=== PATIENT | male | born 1960 | race Caucasian/White ===

== ENCOUNTER 2019-04-02 12:31 | Emergency (ER) | payer MEDICARE ==
--- NOTE | 2019-04-02 12:57 | ED ---
GI/ HPI - HPI Summary HPI Summary: This patient is a 58 year old M presenting to [facility] with a chief complaint of constipation since 03/30/19. Pts last BM was 03/30/19. Pt reports he has always been intermittently constipated; however he reports this time is different from normal. He feels an intense sensation that he will have a BM, but nothing occurs , just abdominal pain. Pt reports that prior to arrival he experienced a syncopal episode. Pt took a laxative yesterday, which provided short-term relief as pressure at abdomen started dissipating, however pt did not have a BM. Pt then took a suppository but that also did not work. In triage severity reported as 12/14. - History of Current Complaint Chief Complaint: EDConstipation Time Seen by Provider: 04/02/19 12:40 Stated Complaint: CHEST PAIN/CONSTIPATION PER EMS Hx Obtained From: Patient Onset/Duration: Started Days Ago - began 03/31/19, Still Present Severity: Mild Current Severity: Mild Pain Intensity: 3 Pain Characteristics: Pressure Associated Signs and Symptoms: Positive: Syncope, Constipation, Abdominal Pain Aggravating Factor(s): Nothing Alleviating Factor(s): Nothing - Allergy/Home Medications Allergies/Adverse Reactions: Allergies Allergy/AdvReac Type Severity Reaction Status Date / Time MS Oxycodone [Oxycodone] Allergy Mild Itching Verified 04/02/19 13:10 MS Omeprazole [Omeprazole] AdvReac Intermediate Altered Verified 04/02/19 13:10 Mental Status PMH/Surg Hx/FS Hx/Imm Hx Endocrine/Hematology History: Reports: Hx Diabetes, Other Endocrine/ Hematological Disorders - HEMOCHROMOTOSIS & HEP C, SPLENECTOMY. Denies: Hx Systemic Lupus Erythematosus, Hx Sickle Cell Disease, Hx Thyroid Disease, Hx Anemia Cardiovascular History: Reports: Hx Angina, Hx Hypercholesterolemia - DYSLIPIDEMIA, Hx Hypertension - ON MEDS, Other Cardiovascular Problems/ Disorders - NEGATIVE CARDIAC CATH 2009 @ [facility] Denies: Hx Congestive Heart Failure, Hx Coronary Artery Disease, Hx Myocardial Infarction, Hx Pacemaker/ICD, Hx Valvular Heart Disease Respiratory History: Reports: Hx Chronic Obstructive Pulmonary Disease (COPD), Other Respiratory Problems/Disorders - CURRENT SMOKER Denies: Hx Asthma GI History: Reports: Hx Gastroesophageal Reflux Disease - ON OMAPRAZOLE, Other GI Disorders - chronic hepatitis, liver lesions dx a week ago Denies: Hx Jaundice, Hx Ulcer History: Reports: Hx Kidney Stones Denies: Hx Dialysis, Hx Renal Disease Musculoskeletal History: Reports: Other Musculoskeletal History - HX FX Denies: Hx Rheumatoid Arthritis Sensory History: Reports: Hx Cataracts - cataract surgery hx, Hx Contacts or Glasses Denies: Hx Hearing Aid Opthamlomology History: Reports: Hx Cataracts - cataract surgery hx, Hx Contacts or Glasses Neurological History: Denies: Other Neuro Impairments/Disorders Psychiatric History: Denies: Hx Panic Disorder - Cancer History Cancer Type, Location and Year: 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 CATARACTS BILATERAL EYES. SURGICAL BIOPSY Hx Anesthesia Reactions: No Infectious Disease History: No Infectious Disease History: Reports: Hx Hepatitis - hep c Denies: Hx Clostridium Difficile, Hx Human Immunodeficiency Virus (HIV), Hx of Known/Suspected MRSA, Hx Shingles, Hx Tuberculosis, Hx Known/Suspected VRE, Hx Known/Suspected VRSA, History Other Infectious Disease, Traveled Outside the [place] in Last 30 Days - Family History Known Family History: Positive: Other - Breast CA - sister - Social History Alcohol Use: None Substance Use Type: Reports: None Smoking Status (MU): Light Every Day Tobacco Smoker Type: Cigarettes Amount Used/How Often: 1/2 PPD Have You Smoked in the Last Year: Yes Review of Systems Positive: Abdominal Pain, Other - Positive: Constipation Positive: Syncope All Other Systems Reviewed And Are Negative: Yes Physical Exam - Summary Physical Exam Summary: Appearance: The patient is well-nourished in no acute distress and in no acute pain. Skin: The skin is warm and dry and skin color reflects adequate perfusion. HEENT: The head is normocephalic and atraumatic. The pupils are equal and reactive. The conjunctivae are clear and without drainage. Nares are patent and without drainage. Mouth reveals moist mucous membranes and the throat is without erythema and exudate. The external ears are intact. The ear canals are patent and without drainage. The tympanic membranes are intact. Neck: The neck is supple with full range of motion and non-tender. There are no carotid bruits. There is no neck vein distemension. Respiratory: Chest is non-tender. Lungs are clear to auscultation and breath sounds are symmetrical and equal. Cardiovascular: Heart is tachycardic. There is no murmur or rub auscultated. There is no peripheral edema and pulses are symmetrical and equal. Abdomen: The abdomen is soft and mildly tender in low abdomen. There are normal bowel sounds heard in all four quadrants and there is no organomegaly palpated. Gastrointestinal: Patient had soft stool Musculoskeletal: There is no back tenderness noted. Extremities are non-tender with full range of motion. There is good capillary refill. There is no peripheral edema or calf tenderness elicited. Neurological: Patient is alert and oriented to person, place and time. The patient has symmetrical motor strength in all four extremities. Cranial nerves are grossly intact. Deep tendon reflexes are symmetrical and equal in all four extremities. Psychiatric: The patient has an appropriate affect and does not exhibit any anxiety or depression. Triage Information Reviewed: Yes Vital Signs On Initial Exam: Initial Vitals Temp Pulse Resp BP Pulse Ox 98.6 F 104 18 154/81 100 04/02/19 12:38 04/02/19 12:38 04/02/19 12:38 04/02/19 12:38 04/02/19 12:38 Vital Signs Reviewed: Yes Diagnostics - Vital Signs Vital Signs Temp Pulse Resp BP Pulse Ox 04/02/19 12:38 98.6 F 104 18 154/81 100 - Laboratory Result Diagrams: 04/02/19 13:39 04/02/19 13:39 Lab Statement: Any lab studies that have been ordered have been reviewed, and results considered in the medical decision making process. - Radiology Abd X-Ray Radiology Interpretation Completed By: Radiologist Summary of Radiographic Findings: Abd X-Ray reveals, per radiologist, IMPRESSION : #. Only a small amount of stool is visualized in the colon primarily at the transverse. colon. Negative for rectal distention with stool. Negative for bowel obstruction. ED physician has reviewed this radiology report. - CT Abd/Pel CT CT Interpretation Completed By: Radiologist Summary of CT Findings: Abd/Pel CT reveals per radiologist,. IMPRESSION: NO HYDRONEPHROSIS OR NEPHROLITHIASIS. ATHEROSCLEROSIS. NO ACUTE NONCONTRAST CT PATHOLOGY OF THE VISUALIZED ABDOMEN OR PELVIS. ED physician has reviewed this radiology report. - EKG 1237 Cardiac Rate: Tachycardia - Rate 107 bpm EKG Rhythm: Sinus Tachycardia Summary of EKG Findings: EKG reveals sinus tachycardia at 107 bpm Re-Evaluation - Re-Evaluation First Eval Re-Evaluation Time: 15:52 Comment: Results discussed, will consult oncologist GIGU Course/Dx - Course Course Of Treatment: Mr. Leach has been feeling constipated for a couple of days. He has been straining to move his bowels and feeling as though he needs to but has been unable. This sensation comes in waves and is quite painful today. He was attempting move his bowels today when he lost consciousness in the bathroom. He states he feels fine on arrival here except he continues to have the waves of pain. He was nontoxic in appearance with stable vitals and his abdomen was mildly tender suprapubic. There was some soft stool in the vault. KUB was unimpressive in terms of constipation as read by radiology and labs were unremarkable therefore a CT scan was ordered. He did move his bowels several times here in the ED and felt completely improved. CT scan was unremarkable. I recommended follow-up with Dr. Nguyen. It sounds like a classic vasovagal syncope. He was kept on the monitor here with no abnormalities. - Diagnoses Provider Diagnoses: Syncope, vasovagal, Constipation - Physician Notifications Discussed Care Of Patient With: Rosa Nguyen Time Discussed With Above Provider: 15:56 Instructed by Provider To: Other - Patient's case discussed with Dr. Nguyen, Dr. Nguyen states that the patient can be discharged to home Discharge - Sign-Out/Discharge Documenting (check all that apply): Patient Departure - Discharge Patient Received Moderate/Deep Sedation with Procedure: No - Discharge Plan Condition: Stable Disposition: HOME Patient Education Materials: Constipation (ED), Syncope (ED) Referrals: Giacomo Mckee MD [Primary Care Provider] - 3 Days Additional Instructions: Follow up with primary care provider within 2-3 days. RETURN TO THE EMERGENCY DEPARTMENT FOR CHANGING OR WORSENING SYMPTOMS. - Billing Disposition and Condition Condition: STABLE Disposition: Home - Attestation Statements Document Initiated by Scribe: Yes Documenting Scribe: MATI SAUCEDO Provider For Whom Renee is Documenting (Include Credential): TYREE BISWAS MD Scribe Attestation: ALEXEI Ponce GAYATRI PRAKASH, scribed for TYREE BISWAS MD on 04/02/19 at 2112. Scribe Documentation Reviewed: Yes Provider Attestation: The documentation as recorded by the ALEXEI stroud GAYATRI NORM accurately reflects the service I personally performed and the decisions made by me, TYREE BISWAS MD Status of Renee Document: Viewed
[2019-04-02 14:03] LABS: Albumin 3.8 g/dL (3.2-5.2); BUN/Creatinine Ratio 16.9 (8-20); Calcium 9.1 mg/dL (8.6-10.3); EGFR African American 136.9 (>60); EGFR Non-African American 113.2 (>60); Globulin 3.9 g/dL (2-4); Magnesium 2.2 mg/dL (1.9-2.7); Potassium 4.4 mmol/L (3.5-5.0); Total Bilirubin 1.3 mg/dL (0.2-1.0); Total Protein 7.7 g/dL (6.4-8.9)
[2019-04-02 14:04] LABS: Troponin I 0.01 ng/mL (<0.04)
[2019-04-02 14:08] LABS: ABS Basophils 0.1 10^3/ul (0-0.2); ABS Neutrophils 4.6 10^3/ul (1.5-7.7); Eosinophil % 0.3 %; Hematocrit 47 % (42-52); Hemoglobin 16.1 g/dL (14.0-18.0); Lymphocyte % 25.7 %; Mean Corpuscular HGB Conc 34 g/dL (31-36); Mean Corpuscular Hemoglobin 33 pg (27-31); Mean Corpuscular Volume 95 fL (80-94); Mean Platelet Volume 8.4 fL (7.4-10.4); Nucleated Red Blood Cells % 0.1; Platelet Count 216 10^3/uL (150-450); Red Blood Count 4.95 10^6 /uL (4.18-5.48); Red Cell Distribution Width 13 % (10-15); White Blood Count 7.7 10^3/uL (3.5-10.8)
[2019-04-02 14:30] LABS: INR 1.12 (0.82-1.09)
[2019-04-02 14:39] LABS: TSH (Thyroid Stimulating Horm) 1.54 mcIU/mL (0.34-5.60)
[2019-04-02] MEDS ORDERED: NS 0.9% 1000 ML** 1,000 ML IV ONE (15:58)
[2019-04-02 18:18] VITALS: BP 163/88
== END 2019-04-02 18:17 | disposition home or self-care (01) ==
LOC: ED 12:31
DX: K59.00 Constipation, unspecified (principal); R55 Syncope and collapse; I70.90 Unspecified atherosclerosis; E11.9 Type 2 diabetes mellitus without complications; I10 Essential (primary) hypertension; F17.210 Nicotine dependence, cigarettes, uncomplicated; J44.9 Chronic obstructive pulmonary disease, unspecified; Z88.5 Allergy status to narcotic agent; Z88.8 Allergy status to other drugs, medicaments and biological substances
CPT/HCPCS: 36415; 74018; 74176; 80053; 83605; 83735; 84443; 84484; 85025; 85610; 93005; 96360; 99284

== ENCOUNTER 2019-07-20 02:58 | Emergency (ER) | payer MEDICARE ==
--- OUTSIDE RECORDS SUMMARY | 2019-07-20 03:08 | XMS REPORT | Continuity of Care Document ---
:1960 External Reference #:[id number] Author Name Sudhir Rios MD (transmitted by agent of provider Alexandrea Reeves) Address [address] [place] [address] Care Team Providers Name Role Phone Giacomo Mckee MD - Endocrinology, Care Team Information Block Sealer Diabetes & Metabolism Problems Active Problems Provider Date Displacement of lumbar intervertebral disc Sudhir Rios MD Onset: without myelopathy Lumbosacral spondylosis without myelopathy Juan Jose Fountain M.D. Onset: Social History Type Date Description Comments Sex Unknown Cigarette Use Pack Years - 40 ETOH Use Denies alcohol use Tobacco Use Start: Unknown Patient is a current smoker, smokes every day Recreational Drug Use Denies Drug Use Tobacco Use Start: Unknown Light tobacco smoker (10 or fewer cigarettes/day) Smoking Status Reviewed: 06/26/19 Light tobacco smoker (10 or fewer cigarettes/day) Exercise Type/Frequency Walks daily Allergies, Adverse Reactions, Alerts Active Allergies Reaction Severity Comments Date Oxycodone Urticaria per patient 11/04/2014 Inactive Allergies NKDA 11/04/2014 Medications Active Medications SIG Qnty Indications Ordering Provider Date Humalog 8 units 3x daily Unknown Solution or as directed Cartridge Lantus Solostar 40 units (of 100 Unknown units/ml) at hs 100Unit/ML Solution Pen-Inject Metoprolol Tartrate 1 by mouth twice a Unknown day 50mg Tablets Amlodipine Besylate 1 by mouth every Unknown day 10mg Tablets Gabapentin 1 by mouth three Unknown 300mg times a day Capsules Ramipril 1 by mouth every Unknown 10mg Capsules day Immunizations Description No Information Available Vital Signs Date Vital Result Comment 06/26/2019 10:56am Height 75 inches 6'3" Weight 210.00 lb Heart Rate 79 /min BP Systolic Sitting 130 mmHg BP Diastolic Sitting 90 mmHg Pain Level 9 BMI (Body Mass Index) 26.2 kg/m2 04/15/2019 2:50pm Height 75 inches 6'3" Weight 210.00 lb BP Systolic Sitting 110 mmHg BP Diastolic Sitting 80 mmHg Pain Level 7 BMI (Body Mass Index) 26.2 kg/m2 Results Description No Information Available Procedures Description No Information Available Medical Devices Description No Information Available Encounters Type Date Location Provider Dx Diagnosis Office Visit 04/15/2019 Neurosurgery Alonzo Sexton, M54.16 Radiculopathy, 2:30p [employer] lumbar region Assessments Date Code Description Provider 06/26/2019 M47.26 Other spondylosis with radiculopathy, Sudhir Rios MD lumbar region 06/26/2019 M54.16 Lumbar radiculopathy Sudhir Rios MD 06/26/2019 M51.26 Other intervertebral disc displacement, Sudhir Rios MD lumbar region 04/15/2019 M54.16 Lumbar radiculopathy VIDHYA Vega Plan of Treatment 06/26/2019 - Sudhir Rios, MDM47.26 Other spondylosis with radiculopathy , lumbar regionFollow up:RV one week, one month, three months [id number] Radiculopathy, lumbar [id number] Other intervertebral disc displacement, lumbar region Functional Status Description No Information Available Mental Status Description No Information Available Referrals Refer to Reason for Referral Status Appt Date Jose David Marquez MD Has history of lumbar stenosis at L4/L5 c/o Created axial low back pain with bilateral radicular pain [address] [place] [address] [phone]
[2019-07-20] MEDS ORDERED: Amoxicillin/Clavulanate TAB* 875 MG PO ONE (03:56)
--- NOTE | 2019-07-20 03:59 | ED ---
GI/ HPI - HPI Summary HPI Summary: Patient is a 59 y/o M presenting to [facility] with complaints of lump under his left testicle. He states that he had some irritation under his left testicle which he thought was chafing. Patient applied vaseline, and while he was doing so, he noticed a lump. He reports that the lump progressively became painful and appeared to increase in size throughout the night. He describes the associated pain as a burning. Patient reports some nausea and abdominal discomfort at present as well. He denies Hx of urologic issues. PMHx of liver cancer, hep C, and diabetes is noted. On triage, pain is rated 8/10, nothing is noted to aggravate/alleviate Sx. Home medications and allergies are reviewed. - History of Current Complaint Chief Complaint: EDUrogenitalProblems Time Seen by Provider: 07/20/19 03:44 Stated Complaint: GROIN PAIN PER PT Hx Obtained From: Patient Onset/Duration: Still Present Timing: Constant Pain Intensity: 8 Additional Locations for Males: Testicles Pain Characteristics: Burning Associated Signs and Symptoms: Positive: Nausea, Abdominal Pain Aggravating Factor(s): Nothing Alleviating Factor(s): Nothing - Allergy/Home Medications Allergies/Adverse Reactions: Allergies Allergy/AdvReac Type Severity Reaction Status Date / Time oxycodone Allergy Mild Itching Verified 07/20/19 12:27 omeprazole AdvReac Intermediate Altered Verified 07/20/19 12:27 Mental Status PMH/Surg Hx/FS Hx/Imm Hx Endocrine/Hematology History: Reports: Hx Diabetes, Other Endocrine/ Hematological Disorders - HEMOCHROMOTOSIS & HEP C, SPLENECTOMY. Denies: Hx Systemic Lupus Erythematosus, Hx Sickle Cell Disease, Hx Thyroid Disease, Hx Anemia Cardiovascular History: Reports: Hx Angina, Hx Hypercholesterolemia - DYSLIPIDEMIA, Hx Hypertension - ON MEDS, Other Cardiovascular Problems/ Disorders - NEGATIVE CARDIAC CATH 2009 @ [facility] Denies: Hx Congestive Heart Failure, Hx Coronary Artery Disease, Hx Myocardial Infarction, Hx Pacemaker/ICD, Hx Valvular Heart Disease Respiratory History: Reports: Hx Chronic Obstructive Pulmonary Disease (COPD), Other Respiratory Problems/Disorders - CURRENT SMOKER Denies: Hx Asthma GI History: Reports: Hx Gastroesophageal Reflux Disease - ON OMAPRAZOLE, Other GI Disorders - chronic hepatitis, liver lesions dx a week ago Denies: Hx Jaundice, Hx Ulcer History: Reports: Hx Kidney Stones Denies: Hx Dialysis, Hx Renal Disease Musculoskeletal History: Reports: Other Musculoskeletal History - HX FX Denies: Hx Rheumatoid Arthritis Sensory History: Reports: Hx Cataracts - cataract surgery hx, Hx Contacts or Glasses Denies: Hx Hearing Aid Opthamlomology History: Reports: Hx Cataracts - cataract surgery hx, Hx Contacts or Glasses Neurological History: Denies: Other Neuro Impairments/Disorders Psychiatric History: Denies: Hx Panic Disorder - Cancer History Cancer Type, Location and Year: 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 CATARACTS BILATERAL EYES. SURGICAL BIOPSY Hx Anesthesia Reactions: No Infectious Disease History: Yes Infectious Disease History: Reports: Hx Hepatitis - hep c Denies: Hx Clostridium Difficile, Hx Human Immunodeficiency Virus (HIV), Hx of Known/Suspected MRSA, Hx Shingles, Hx Tuberculosis, Hx Known/Suspected VRE, Hx Known/Suspected VRSA, History Other Infectious Disease, Traveled Outside the [place] in Last 30 Days - Family History Known Family History: Positive: Other - Breast CA - sister - Social History Alcohol Use: None Substance Use Type: Reports: None Smoking Status (MU): Light Every Day Tobacco Smoker Type: Cigarettes Amount Used/How Often: 1/2 PPD Have You Smoked in the Last Year: Yes Review of Systems Positive: Abdominal Pain, Nausea Genitourinary: Other - painful lump over left testicle All Other Systems Reviewed And Are Negative: Yes Physical Exam - Summary Physical Exam Summary: Appearance: Well-appearing, Well-nourished, lying in bed comfortably Skin: Warm, dry, no obvious rash Eyes: sclera anicteric, no conjunctival pallor ENT: mucous membranes moist, pharynx appears normal Neck: Supple, nontender Respiratory: Clear to auscultation, no signs of respiratory distress Cardiovascular: Normal S1, S2. No murmurs. Normal distal pulses in tibial and radial bilaterally. Abdomen: Soft, nontender, normal active bowel sounds present Gential Exam: At the skin between the base of scrotum and anus there is redness , induration, and swelling on the left side. There is a small, central punctum that is black that was unroofed and revealed purulent drainage that was foul smelling. It does not feel like there is any further fluctuance present Musculoskeletal: Normal, Strength/ROM Intact Neurological: A&Ox3, awake and alert, mentation is normal, speech is fluent and appropriate Psychiatric: affect is normal, does not appear anxious or depressed Triage Information Reviewed: Yes Vital Signs On Initial Exam: Initial Vitals Temp Pulse Resp BP Pulse Ox 98.6 F 135 15 138/89 99 07/20/19 02:59 07/20/19 02:59 07/20/19 02:59 07/20/19 02:59 07/20/19 02:59 Vital Signs Reviewed: Yes Procedures - Sedation Patient Received Moderate/Deep Sedation with Procedure: No Diagnostics - Vital Signs Vital Signs Temp Pulse Resp BP Pulse Ox 07/20/19 02:59 98.6 F 135 15 138/89 99 - Laboratory Lab Statement: Any lab studies that have been ordered have been reviewed, and results considered in the medical decision making process. Re-Evaluation - Re-Evaluation First Eval Re-Evaluation Time: 04:19 Comment: Upon discharge, patient vomited. He was given 8 mg Zofran SL and discharged. GIGU Course/Dx - Course Course Of Treatment: Patient is a 59 y/o M presenting to [facility] with complaints of lump under his left testicle. He states that he had some irritation under his left testicle which he thought was chafing. Patient applied vaseline, and while he was doing so, he noticed a lump. He reports that the lump progressively became painful and appeared to increase in size throughout the night. He describes the associated pain as a burning. Patient reports some nausea and abdominal discomfort at present as well. He denies Hx of urologic issues. Gential Exam: At the skin between the base of scrotum and anus there is redness, induration, and swelling on the left side. There is a small, central punctum that is black that was unroofed and revealed purulent drainage that was foul smelling. It does not feel like there is any further fluctuance present. Patient received Augmentin 875 mg and Zofran 8 mg. He was given prescriptions for both these medications and discharged to home with surgery and PCP follow up. - Diagnoses Provider Diagnoses: Cellulitis Discharge ED - Sign-Out/Discharge Documenting (check all that apply): Patient Departure - Discharge Plan Condition: Stable Disposition: HOME Prescriptions: Amoxicillin/Clavulanate TAB* [Augmentin TAB 875*] 875 mg PO BID #20 tab Ondansetron ODT TAB* [Zofran 4 MG Odt TAB*] 8 mg PO Q6H PRN #12 tab.odt PRN Reason: Nausea Patient Education Materials: Cellulitis (ED) Referrals: Giacomo Mckee MD [Primary Care Provider] - Fernie Banks MD [Medical Doctor] - Additional Instructions: The infection in the skin between the scrotum and anus does not appear to be abscessed at this time, but it could be starting to do that or can go on to abscess despite treatment. Because of this I would like you to be seen by one of the general surgeons in the office building next to the hospital on Saturday or Saturday. If the area is getting a lot more swollen and/or painful in the interim, you should come back here and we would want to get an ultrasound of the area to see if it requires surgical drainage. In the interim take the prescribed antibiotic and do sitz baths 3-4 times daily. - Billing Disposition and Condition Condition: STABLE Disposition: Home - Attestation Statements Document Initiated by Renee: Yes Documenting Nataibe: ALEXEI MILTON Provider For Whom Renee is Documenting (Include Credential): TYREE CERON MD Scribe Attestation: I, ALEXEI MILTON, scribed for TYREE CERON MD on 07/21/19 at 0332. Scribe Documentation Reviewed: Yes Provider Attestation: The documentation as recorded by the ALEXEI stroud accurately reflects the service I personally performed and the decisions made by me, TYREE CERON MD Status of Scribe Document: Viewed
[2019-07-20] MEDS ORDERED: Ondansetron ODT TAB* 4 MG SL ONE (04:17)
[2019-07-20 04:28] VITALS: BP 147/74
== END 2019-07-20 04:28 | disposition home or self-care (01) ==
LOC: ED 02:58
DX: L03.90 Cellulitis, unspecified (principal); N50.812 Left testicular pain; E11.9 Type 2 diabetes mellitus without complications; E78.00 Pure hypercholesterolemia, unspecified; E78.5 Hyperlipidemia, unspecified; K21.9 Gastro-esophageal reflux disease without esophagitis; F17.210 Nicotine dependence, cigarettes, uncomplicated
CPT/HCPCS: 99282; A9270-GY

== ENCOUNTER 2019-07-20 12:18 | Emergency (ER) | payer MEDICARE ==
--- NOTE | 2019-07-20 12:51 | ED ---
GI/ HPI - HPI Summary HPI Summary: Pt is a 59 y/o M presenting to the ED for a chief complaint of left testicular pain. Pt states the left testicle is erythematous and swollen. Pt reports a lump on the left testicle that he describes as a throbbing sensation. Pt describes the pain previously had a burning sensation. Pt placed Vaseline on the area two days ago when he noticed a rash-like region near the left testicle. Pt had no pain when the pt noticed the left testicular lump which has worsened since initial onset. On triage, pt rates the pain as 8/10 in severity. Pt was seen at [facility] on 07/20/19 at 01:00. At that time, pt was discharged and given antibiotics which the pt last took at 10:00 on 07/20/19. - History of Current Complaint Chief Complaint: EDUrogenitalProblems Time Seen by Provider: 07/20/19 12:47 Stated Complaint: GROWTH ON TESTICLE PER PT Hx Obtained From: Patient Onset/Duration: Started Hours Ago, Atraumatic, Still Present Timing: Lasting Hours Severity: Severe Current Severity: Severe Pain Intensity: 8 Additional Locations for Males: Testicles - Left Pain Characteristics: Burning - Previously, Other: - Throbbing at present time Associated Signs and Symptoms: Positive: Other: - Positive erythema and swelling of left testicle Aggravating Factor(s): Nothing Alleviating Factor(s): Nothing - Allergy/Home Medications Allergies/Adverse Reactions: Allergies Allergy/AdvReac Type Severity Reaction Status Date / Time oxycodone Allergy Mild Itching Verified 07/20/19 12:27 omeprazole AdvReac Intermediate Altered Verified 07/20/19 12:27 Mental Status PMH/Surg Hx/FS Hx/Imm Hx Previously Healthy: Yes Endocrine/Hematology History: Reports: Hx Diabetes, Other Endocrine/ Hematological Disorders - HEMOCHROMOTOSIS & HEP C, SPLENECTOMY. Denies: Hx Systemic Lupus Erythematosus, Hx Sickle Cell Disease, Hx Thyroid Disease, Hx Anemia Cardiovascular History: Reports: Hx Angina, Hx Hypercholesterolemia - DYSLIPIDEMIA, Hx Hypertension - ON MEDS, Other Cardiovascular Problems/ Disorders - NEGATIVE CARDIAC CATH 2009 @ [facility], [facility] Denies: Hx Congestive Heart Failure, Hx Coronary Artery Disease, Hx Myocardial Infarction, Hx Pacemaker/ICD, Hx Valvular Heart Disease Respiratory History: Reports: Hx Chronic Obstructive Pulmonary Disease (COPD), Other Respiratory Problems/Disorders - CURRENT SMOKER Denies: Hx Asthma GI History: Reports: Hx Gastroesophageal Reflux Disease - ON OMAPRAZOLE, Other GI Disorders - chronic hepatitis, liver lesions dx a week ago Denies: Hx Jaundice, Hx Ulcer History: Reports: Hx Kidney Stones Denies: Hx Dialysis, Hx Renal Disease Musculoskeletal History: Reports: Other Musculoskeletal History - HX FX Denies: Hx Rheumatoid Arthritis Sensory History: Reports: Hx Cataracts - cataract surgery hx, Hx Contacts or Glasses Denies: Hx Hearing Aid Opthamlomology History: Reports: Hx Cataracts - cataract surgery hx, Hx Contacts or Glasses Neurological History: Denies: Other Neuro Impairments/Disorders Psychiatric History: Denies: Hx Panic Disorder - Cancer History Cancer Type, Location and Year: 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 CATARACTS BILATERAL EYES. SURGICAL BIOPSY Hx Anesthesia Reactions: No Infectious Disease History: No Infectious Disease History: Reports: Hx Hepatitis - hep c Denies: Hx Clostridium Difficile, Hx Human Immunodeficiency Virus (HIV), Hx of Known/Suspected MRSA, Hx Shingles, Hx Tuberculosis, Hx Known/Suspected VRE, Hx Known/Suspected VRSA, History Other Infectious Disease, Traveled Outside the [place] in Last 30 Days - Family History Known Family History: Positive: Other - Breast CA - sister - Social History Alcohol Use: None Substance Use Type: Reports: None Smoking Status (MU): Light Every Day Tobacco Smoker Type: Cigarettes Amount Used/How Often: 1/2 PPD Have You Smoked in the Last Year: Yes Review of Systems Positive: pain - Left testicle, other - Positive erythema and swelling of the left testicle Positive: Rash - Near the left testicle All Other Systems Reviewed And Are Negative: Yes Physical Exam - Summary Physical Exam Summary: Appearance: The patient is well-nourished in no acute distress and in no acute pain. Skin: The skin is warm and dry, and skin color reflects adequate perfusion. HEENT: The head is normocephalic and atraumatic. The pupils are equal and reactive. The conjunctivae are clear and without drainage. Nares are patent and without drainage. Mouth reveals moist mucous membranes, and the throat is without erythema and exudate. The external ears are intact. The ear canals are patent and without drainage. The tympanic membranes are intact. Neck: The neck is supple with full range of motion and non-tender. There are no carotid bruits. There is no neck vein distension. Respiratory: Chest is non-tender. Lungs are clear to auscultation and breath sounds are symmetrical and equal. Cardiovascular: Heart is regular rate and rhythm. There is no murmur or rub auscultated. There is no peripheral edema and pulses are symmetrical and equal. Abdomen: The abdomen is soft and non-tender. There are normal bowel sounds heard in all four quadrants and there is no organomegaly palpated. Genital: Swollen and edematous, red and dark discoloration, more in the left than the right, tender to palpation and firm. Musculoskeletal: There is no back tenderness noted. Extremities are non-tender with full range of motion. There is good capillary refill. There is no peripheral edema or calf tenderness elicited. Neurological: Patient is alert and oriented to person, place and time. The patient has symmetrical motor strength in all four extremities. Cranial nerves are grossly intact. Deep tendon reflexes are symmetrical and equal in all four extremities. Psychiatric: The patient has an appropriate affect and does not exhibit any anxiety or depression. Triage Information Reviewed: Yes Vital Signs On Initial Exam: Initial Vitals Temp Pulse Resp BP Pulse Ox 99.2 F 123 16 113/72 97 07/20/19 12:23 07/20/19 12:23 07/20/19 12:23 07/20/19 12:23 07/20/19 12:23 Vital Signs Reviewed: Yes Procedures - Sedation Patient Received Moderate/Deep Sedation with Procedure: No Diagnostics - Vital Signs Vital Signs Temp Pulse Resp BP Pulse Ox 07/20/19 12:23 99.2 F 123 16 113/72 97 - Laboratory Result Diagrams: 07/20/19 13:30 07/20/19 13:30 Lab Statement: Any lab studies that have been ordered have been reviewed, and results considered in the medical decision making process. - Ultrasound Testicular US Ultrasound Interpretation Completed By: Radiologist Summary of Ultrasound Findings: Testicular US IMPRESSION: 1. NO SONOGRAPHIC FEATURES OF TORSION. PLEASE NOTE THAT PARTIAL OR INTERMITTENT TORSION. MAY BE SONOGRAPHICALLY NORMAL. 2. NO TESTICULAR PARENCHYMAL MASS. 3. THERE IS SCROTAL WALL EDEMA WITH ILL-DEFINED FLUID COLLECTION INFERIOR TO THE SCROTUM. MEASURING UP TO 2 CM IN SIZE CONCERNING FOR ABSCESS. THERE IS SUBCUTANEOUS GAS EXTENDING. FROM THE ABSCESS INTO THE RIGHT SCROTAL WALL. THE DIFFERENTIAL INCLUDES JACKLYN GANGRENE. IN THE CORRECT CLINICAL SETTING. Reviewed by ED physician. Re-Evaluation - Re-Evaluation 1st re-eval Re-Evaluation Time: 13:53 Change: Unchanged Comment: At 13:53, I discussed pt's care with the pt. GIGU Course/Dx - Course Course Of Treatment: Mr. Leach noticed a lesion on his left scrotum last evening. He came into the emergency department where the it was unroofed with some pus seen. He was started on Augmentin and discharged. He returns stating that is gotten steadily worse since that time and is more painful. On initial exam he had the lesion and also some swelling with erythema and mild duskiness of the left side of his scrotum. There is no lymphadenopathy. He was nontoxic in appearance and afebrile but he was tachycardic. He was given Zosyn, vancomycin and clindamycin as well as IV fluids. His WBCs returned at 30,000 and therefore he met septic criteria. Ultrasound of his scrotum did show a 2 cm likely abscess with a small amount of subcutaneous air. I spoke with Dr. Gilbert about the possibility of Jacklyn's gangrene and he requested that I transfer the patient. I spoke with the transfer center and Dr. Hilton of urology at [facility] which is the closest institution accepted transfer. 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 - Critical Care Time Critical Care Time: 30-74 min Discharge ED - Sign-Out/Discharge Documenting (check all that apply): Patient Departure - Transfer - Discharge Plan Condition: Guarded Disposition: TRANS HIGHER LVL OF CARE FAC Referrals: Giacomo Mckee MD [Primary Care Provider] - - Billing Disposition and Condition Condition: GUARDED Disposition: Trans Higher Lvl of Care Fac - Attestation Statements Document Initiated by Scribe: Yes Documenting Scribe: Denisse Jameson Provider For Whom Renee is Documenting (Include Credential): Caleb Dobbins MD Scribe Attestation: Denisse Ponce, scribed for Caleb Dobibns MD on 07/20/19 at 1620. Scribe Documentation Reviewed: Yes Provider Attestation: The documentation as recorded by the scribe, Denisse Amquy accurately reflects the service I personally performed and the decisions made by me, Caleb Dobbins MD Status of Scribe Document: Viewed Consult Consult: At 15:50, I spoke with Dr. Gilbert about pts possible transfer. At 16:16, I discussed pts case with Dr. Rodriguez in nephrology .
[2019-07-20] MEDS ORDERED: Vancomycin(*) 1,000 MG in NS 0.9% 250 ML* 250 ML IVPB ONE (13:08)
[2019-07-20] MEDS ORDERED: Piperacillin/Tazobac ADVAN(*) 3.375 GM in NS 0.9% 100 ML* 100 ML IVPB ONE (13:08)
[2019-07-20] MEDS: NS 0.9% 1000 ML** 3,000 ML IV ONE ×2 (13:34→14:44)
[2019-07-20 13:51] LABS: Hematocrit 38 % (42-52); Hemoglobin 13.1 g/dL (14.0-18.0); Mean Corpuscular HGB Conc 34 g/dL (31-36); Mean Corpuscular Hemoglobin 35 pg (27-31); Mean Corpuscular Volume 101 fL (80-94); Mean Platelet Volume 8.8 fL (7.4-10.4); Platelet Count 186 10^3/uL (150-450); Red Blood Count 3.77 10^6 /uL (4.18-5.48); Red Cell Distribution Width 13 % (10-15); White Blood Count 31.2 10^3/uL (3.5-10.8)
[2019-07-20 14:01] LABS: Activated Partial Thrombo Time 32.2 seconds (26.0-38.0); INR 1.17 (0.82-1.09)
[2019-07-20 14:04] LABS: Troponin I 0.03 ng/mL (<0.04)
[2019-07-20 14:05] LABS: Albumin 3.5 g/dL (3.2-5.2); Albumin/Globulin Ratio 1.1 (1-3); BUN/Creatinine Ratio 16.7 (8-20); C Reactive Protein 53.87 mg/L (<8.01); Calcium 9.6 mg/dL (8.6-10.3); EGFR African American 122.4 (>60); EGFR Non-African American 101.2 (>60); Globulin 3.2 g/dL (2-4); Potassium 4.7 mmol/L (3.5-5.0); Total Bilirubin 1.8 mg/dL (0.2-1.0); Total Protein 6.7 g/dL (6.4-8.9)
[2019-07-20 15:09] LABS: ABS Basophils 0.1 10^3/ul (0-0.2); ABS Lymphocytes 1.7 10^3/ul (1.0-4.8); ABS Monocytes 1.6 10^3/ul (0-0.8); ABS Neutrophils 27.8 10^3/ul (1.5-7.7); Eosinophil % 0.1 %; Lymphocyte % 5.3 %
[2019-07-20] MEDS ORDERED: Clindamycin 900 MG IVPREMIX(* 900 MG/50 ML SDV IV ONE (16:13)
[2019-07-20] MEDS ORDERED: Ondansetron INJ* 2 MG/ML VIAL IV ONE (16:38)
[2019-07-20] MEDS ORDERED: Ondansetron INJ* 2 MG/ML VIAL ONE (16:40)
[2019-07-20 17:07] VITALS: BP 169/76
== END 2019-07-20 16:44 | disposition short-term general hospital (02) ==
LOC: ED 12:18
DX: N49.3 Fournier gangrene (principal); E11.9 Type 2 diabetes mellitus without complications; E78.00 Pure hypercholesterolemia, unspecified; I10 Essential (primary) hypertension; J44.9 Chronic obstructive pulmonary disease, unspecified; K21.9 Gastro-esophageal reflux disease without esophagitis; F17.210 Nicotine dependence, cigarettes, uncomplicated; Z87.442 Personal history of urinary calculi; Z90.81 Acquired absence of spleen; Z79.899 Other long term (current) drug therapy; Z88.5 Allergy status to narcotic agent; Z88.8 Allergy status to other drugs, medicaments and biological substances
CPT/HCPCS: 36415; 76870; 80053; 83605; 84484; 85025; 85610; 85730; 86140; 87040; 96365; 96375; 99284; J2405; J2543; J3370

== ENCOUNTER 2023-11-09 23:13 | Inpatient (IN) ==
[2023-11-09] MEDS ORDERED: Iodixanol (CONTRAST) 320 MG/ML 100 ML SDV IV ONE (23:32)
[2023-11-09 23:36] LABS: ABS Basophils 0.2 10^3/uL (0.0-0.1); ABS Eosinophils 0.1 10^3/uL (0.0-0.5); ABS Lymphocytes 4.7 10^3/uL (1.0-4.8); ABS Monocytes 1.4 10^3/uL (0.0-1.1); ABS Neutrophils 6.8 10^3/uL (1.5-7.6); Eosinophil % 0.7 %; Hematocrit 33.7 % (38-53); Hemoglobin 11.4 g/dL (13.2-16.3); Lymphocyte % 35.4 %; Mean Corpuscular Hemoglobin 31.3 pg (27-33); Mean Corpuscular Hgb Conc 33.8 g/dL (31-36); Mean Corpuscular Volume 92.6 fL (80-97); Mean Platelet Volume 9.5 fL (7.5-11.2); Platelet Count 295 10^3/uL (150-450); Red Blood Count 3.64 10^6/uL (4.06-5.63); Red Cell Distribution Width 13.6 % (12-17); White Blood Count 13.1 10^3/uL (3.6-10.2)
[2023-11-09] MEDS ORDERED: TENECTEPLASE 50 MG VIAL KIT 5 MG/ML (reconstituted) IV ONE (23:49)
[2023-11-10 00:08] LABS: Albumin 3.7 g/dL (3.2-5.2); Albumin/Globulin Ratio 0.8 (1-3); Calcium 8.7 mg/dL (8.6-10.3); Creatinine, Serum 1.08 mg/dL (0.67-1.17); Direct Bilirubin 0.3 mg/dL (0.03-0.18); Globulin 4.6 g/dL (2-4); HDL Cholesterol 35.9 mg/dL; Indirect Bilirubin 0.5 mg/dL (0.3-1.0); Potassium 3.7 mmol/L (3.5-5.0); Total Bilirubin 0.8 mg/dL (0.2-1.0); Total Protein 8.3 g/dL (6.4-8.9); eGFR CKD-EPI 76.2 (>60)
[2023-11-10 00:12] LABS: Activated Partial Thrombo Time 31.1 seconds (26.0-38.0); INR 1.19 (0.83-1.13)
[2023-11-10] MEDS ORDERED: KCL 20 MEQ/100 ML IVPREMIX 20 MEQ/100 ML BAG IV ONE (00:55)
[2023-11-10] MEDS ORDERED: Potassium EFFERVES 25 meq TAB PO ONE (00:56)
[2023-11-10] MEDS ORDERED: Potassium Chlor 20 meq TAB.ER PO ONE (02:29)
[2023-11-10] MEDS ORDERED: Dextrose 50% Syringe 50 ml 25 GM/50 ML SYRINGE IV PUSH PRN (02:30)
[2023-11-10 05:43] LABS: ABS Basophils 0.1 10^3/uL (0.0-0.1); ABS Eosinophils 0.1 10^3/uL (0.0-0.5); ABS Lymphocytes 3.8 10^3/uL (1.0-4.8); ABS Monocytes 1.4 10^3/uL (0.0-1.1); ABS Neutrophils 5.4 10^3/uL (1.5-7.6); ABS Nucleated RBC 0.01 10^3/ul; Eosinophil % 0.9 %; Hemoglobin 9.9 g/dL (13.2-16.3); Lymphocyte % 34.8 %; Mean Corpuscular Hemoglobin 31.4 pg (27-33); Mean Corpuscular Volume 92.1 fL (80-97); Mean Platelet Volume 9.2 fL (7.5-11.2); Nucleated Red Blood Cells % 0.1 %/100WBC (0.0-0.8); Platelet Count 264 10^3/uL (150-450); Red Blood Count 3.15 10^6/uL (4.06-5.63); White Blood Count 10.8 10^3/uL (3.6-10.2)
[2023-11-10 05:53] LABS: Albumin/Globulin Ratio 0.8 (1-3); Creatinine, Serum 0.9 mg/dL (0.67-1.17); Globulin 3.8 g/dL (2-4); Magnesium 1.4 mg/dL (1.9-2.7); Potassium 4.2 mmol/L (3.5-5.0); Total Bilirubin 0.7 mg/dL (0.2-1.0); Total Protein 6.8 g/dL (6.4-8.9); eGFR CKD-EPI 94.8 (>60)
[2023-11-10] MEDS ORDERED: Magnesium Sulf 4 GM/100 ML IV 4,000 MG/100 ML BAG IVPB ONE (06:26)
[2023-11-10 06:54] LABS: Urine Appearance Clear; Urine Bilirubin Negative (Negative); Urine Blood 3+ (Negative); Urine Color Yellow; Urine Glucose Negative (Negative); Urine Ketones Negative (Negative); Urine Nitrite Negative (Negative); Urine Protein 2+(100 mg/dL) (Negative); Urine Specific Gravity 1.044 (1.002-1.030); Urine Urobilinogen Negative (Negative)
[2023-11-10 07:02] LABS: Urine Bacteria 1+ (Absent); Urine Red Blood Cell 3+(>10/hpf) (Absent); Urine Squamous Epithelial Cell Present (Absent); Urine White Blood Cell Trace(0-5/hpf) (Absent)
[2023-11-11 04:30] LABS: ABS Basophils 0.1 10^3/uL (0.0-0.1); ABS Eosinophils 0.1 10^3/uL (0.0-0.5); ABS Lymphocytes 3.7 10^3/uL (1.0-4.8); ABS Monocytes 1.2 10^3/uL (0.0-1.1); ABS Neutrophils 4.5 10^3/uL (1.5-7.6); ABS Nucleated RBC 0.01 10^3/ul; Eosinophil % 1.2 %; Hematocrit 28.6 % (38-53); Hemoglobin 9.8 g/dL (13.2-16.3); Lymphocyte % 38.7 %; Mean Corpuscular Hemoglobin 31.4 pg (27-33); Mean Corpuscular Hgb Conc 34.3 g/dL (31-36); Mean Corpuscular Volume 91.6 fL (80-97); Mean Platelet Volume 9.6 fL (7.5-11.2); Nucleated Red Blood Cells % 0.1 %/100WBC (0.0-0.8); Platelet Count 266 10^3/uL (150-450); Red Blood Count 3.12 10^6/uL (4.06-5.63); Red Cell Distribution Width 13.6 % (12-17); White Blood Count 9.6 10^3/uL (3.6-10.2)
[2023-11-11 04:49] LABS: Calcium 8.2 mg/dL (8.6-10.3); Creatinine, Serum 0.92 mg/dL (0.67-1.17); Magnesium 1.8 mg/dL (1.9-2.7); Potassium 4.5 mmol/L (3.5-5.0); eGFR CKD-EPI 92.3 (>60)
[2023-11-11] MEDS ORDERED: Magnesium Sulfate IV 1GM/100ML 1 GM/100 ML BAG IV ONE (05:01)
[2023-11-11] MEDS ORDERED: Enoxaparin 40 MG/0.4 ML SYR SUBCUT SCH (13:00)
[2023-11-11 16:22] VITALS: BP 160/79
== END 2023-11-11 17:35 | disposition home or self-care (01) | DRG 63 ==
LOC: ED 23:13 → EDHOLD 11-10 00:29 → ICU 11-10 01:39
PROVIDERS: ADMIT Internal Medicine; ATTEND Internal Medicine

== ENCOUNTER 2023-12-19 10:32 | Observation (INO) ==
[2023-12-19 12:01] LABS: ABS Basophils 0.1 10^3/uL (0.0-0.1); ABS Eosinophils 0.1 10^3/uL (0.0-0.5); ABS Lymphocytes 2.6 10^3/uL (1.0-4.8); ABS Monocytes 0.9 10^3/uL (0.0-1.1); ABS Neutrophils 4.4 10^3/uL (1.5-7.6); ABS Nucleated RBC 0.01 10^3/ul; Eosinophil % 0.9 %; Hematocrit 27.5 % (38-53); Hemoglobin 9.2 g/dL (13.2-16.3); Lymphocyte % 31.8 %; Mean Corpuscular Hemoglobin 30.2 pg (27-33); Mean Corpuscular Hgb Conc 33.6 g/dL (31-36); Mean Corpuscular Volume 89.8 fL (80-97); Mean Platelet Volume 9.1 fL (7.5-11.2); Nucleated Red Blood Cells % 0.1 %/100WBC (0.0-0.8); Platelet Count 376 10^3/uL (150-450); Red Blood Count 3.06 10^6/uL (4.06-5.63); Red Cell Distribution Width 13.8 % (12-17)
[2023-12-19] MEDS ORDERED: Heparin 2 UNITS/ML IVPREMIX 3,000 UNIT/1,500 ML BAG IV ONE (12:01)
[2023-12-19] MEDS ORDERED: Lidocaine 1% VIAL 10 MG/ML 30 ML VIAL ONE ×2 (12:01→12:08)
[2023-12-19] MEDS ORDERED: Iohexol 350 (CONTRAST) 100 ML PAK IV ONE ×3 (12:01→13:18)
[2023-12-19] MEDS ORDERED: Midazolam 5 mg/5 ml VIAL 1 mg/ml 5 ml VIAL (5 mg) ONE (12:06)
[2023-12-19] MEDS ORDERED: fentaNYL 100 mcg/2 ml 50 MCG/ML VIAL ONE (12:06)
[2023-12-19 12:08] LABS: Activated Partial Thrombo Time 30.6 seconds (26.0-38.0); INR 1.16 (0.83-1.13)
[2023-12-19] MEDS ORDERED: Flumazenil 0.5 mg/5 ml 0.1 MG/ML 5 ml VIAL IV PRN (12:10)
[2023-12-19] MEDS ORDERED: Naloxone 0.4 mg VIAL 0.4 mg/ml 1 ml VIAL IV PUSH PRN (12:10)
[2023-12-19 12:35] LABS: Calcium 8.7 mg/dL (8.6-10.3); Creatinine, Serum 1.09 mg/dL (0.67-1.17); Potassium 4.2 mmol/L (3.5-5.0); eGFR CKD-EPI 75.3 (>60)
[2023-12-19] MEDS ORDERED: Ondansetron 4 mg VIAL 2 MG/ML 2 ml VIAL ONE (14:24)
[2023-12-19] MEDS ORDERED: Prochlorperazine 5 mg/ml 2 ml VIAL (10 mg) ONE (15:30)
[2023-12-19] MEDS: Prochlorperazine 5 mg/ml 2 ml VIAL (10 mg) IV ONE (16:00)
[2023-12-19] MEDS: fentaNYL 100 mcg/2 ml 50 MCG/ML VIAL IV SLOW PU ONE (16:11)
[2023-12-19] MEDS: Midazolam 10 mg/10 ml VIAL 1 mg/ml 10 ml VIAL (10 mg) IV SLOW PU ONE (16:11)
[2023-12-19] MEDS: cefTRIAXone 1 gm/50 mL D5W 1 GM/50 ML BAG IV ONE (16:13)
[2023-12-19] MEDS: Clindamycin 900 MG/D5W BAG IVPB ONE (16:13)
[2023-12-19] MEDS: NS 0.9% 1000 ml BAG 1,000 ML IV ONE (16:15)
[2023-12-19] MEDS: NS 0.9% 1000 ml BAG 1,000 ML IV SCH (18:31)
[2023-12-19] MEDS: [UNRECOGNIZED DRUG - OTHER] ONE (18:31)
[2023-12-19] MEDS: Insulin GLARGINE 100 un/ml 10 ml VIAL SUBCUT SCH (21:44)
[2023-12-20] MEDS ORDERED: NON FORMULARY MED (Insulin Aspart U-100 [Novolog Flexpen U-100 Insulin] 100 unit/mL (3 mL) SUBCUT SCH (08:00)
[2023-12-20] MEDS ORDERED: Thrombin 5,000 UNITS(BOVINE) for Ultrasound Guided Pseudoaneursym TOPICAL ONE (12:30)
[2023-12-20 13:29] VITALS: BP 178/78
== END 2023-12-20 14:23 | disposition home or self-care (01) ==
LOC: CHICATH 10:32 → INTOOBSV 16:52 → SSU 16:52
PROVIDERS: ADMIT Internal Medicine Medical Oncology; ATTEND Internal Medicine Medical Oncology

== ENCOUNTER 2024-05-16 13:52 | Inpatient (IN) ==
[2024-05-16] MEDS: Ondansetron 4 mg VIAL 2 MG/ML 2 ml VIAL IV ONE (14:15)
[2024-05-16] MEDS: Pantoprazole VIAL 40 MG VIAL IV ONE (14:21)
[2024-05-16 14:28] LABS: INR 1.79 (0.83-1.13)
[2024-05-16 14:37] LABS: Hemoglobin 7.3 g/dL (13.2-16.3); Mean Corpuscular Hemoglobin 25.6 pg (27-33); Mean Corpuscular Volume 77.4 fL (80-97); Mean Platelet Volume 11.2 fL (7.5-11.2); Platelet Count 229 10^3/uL (150-450); Red Blood Count 2.84 10^6/uL (4.06-5.63); Red Cell Distribution Width 21.6 % (12-17); White Blood Count 11.8 10^3/uL (3.6-10.2)
[2024-05-16] MEDS: Morphine 4 MG/ML VIAL (1 ml) IV ONE (15:03)
[2024-05-16 15:13] LABS: ABS Lymphocytes 3.1 10^3/ul (1.0-4.8); ABS Lymphocytes 3.4 10^3/uL (1.0-4.8); ABS Monocytes 0.6 10^3/ul (0.0-1.1); ABS Monocytes 1.3 10^3/uL (0.0-1.1); ABS Neutrophils 7.1 10^3/uL (1.5-7.6); ABS Neutrophils 8.1 10^3/ul (1.5-7.6); ABS Nucleated RBC 0.08 10^3/ul; Nucleated Red Blood Cells % 0.7 %/100WBC (0.0-0.8)
[2024-05-16 15:14] LABS: Anisocytosis 2+; Hypochromasia 1+; Target Cells 1+
[2024-05-16 15:34] LABS: ALT 46 U/L (7-52); Albumin 2.6 g/dL (3.2-5.2); Albumin/Globulin Ratio 0.6 (1-3); Alkaline Phosphatase 181 U/L (35-149); Blood Urea Nitrogen 24 mg/dL (6-24); Chloride 99 mmol/L (101-111); Creatinine, Serum 1.65 mg/dL (0.67-1.17); Globulin 4.1 g/dL (2-4); Glucose 138 mg/dL (70-100); Sodium 133 mmol/L (135-145); Total Bilirubin 1.6 mg/dL (0.2-1.0); Total Protein 6.7 g/dL (6.4-8.9); eGFR CKD-EPI 45.5 (>60)
[2024-05-16] MEDS: Pantoprazole 80 mg in NS BAG 80 MG/250 ML BAG IV ONE (15:55)
[2024-05-16 16:42] LABS: Anion Gap 10 mmol/L (2-16); CO2 Carbon Dioxide 24 mmol/L (22-32)
[2024-05-16] MEDS: Ondansetron 4 mg VIAL 2 MG/ML 2 ml VIAL IV PRN (18:16)
[2024-05-16] MEDS: Prochlorperazine 5 mg/ml 2 ml VIAL (10 mg) IV PRN (18:48)
[2024-05-17 00:54] LABS: Potassium Redraw 4.8 mmol/L (3.5-5.0)
[2024-05-17 01:08] LABS: Hemoglobin 7.3 g/dL (13.2-16.3)
[2024-05-17 07:00] LABS: Hematocrit 21.6 % (38-53); Mean Corpuscular Hemoglobin 25.5 pg (27-33); Mean Corpuscular Hgb Conc 32.5 g/dL (31-36); Mean Corpuscular Volume 78.5 fL (80-97); Red Blood Count 2.75 10^6/uL (4.06-5.63); Red Cell Distribution Width 21.6 % (12-17); White Blood Count 11.6 10^3/uL (3.6-10.2)
[2024-05-17 07:09] LABS: Calcium 7.8 mg/dL (8.6-10.3); Creatinine, Serum 2.11 mg/dL (0.67-1.17); Magnesium 1.8 mg/dL (1.9-2.7); eGFR CKD-EPI 33.9 (>60)
[2024-05-17 08:04] LABS: ABS Basophils 0.1 10^3/uL (0.0-0.1); ABS Lymphocytes 3.3 10^3/uL (1.0-4.8); ABS Monocytes 0.9 10^3/uL (0.0-1.1); ABS Neutrophils 7.3 10^3/uL (1.5-7.6); ABS Nucleated RBC 0.05 10^3/ul; Large Platelets Present; Lymphocyte % 28.7 %; Mean Platelet Volume 10.8 fL (7.5-11.2); Nucleated Red Blood Cells % 0.4 %/100WBC (0.0-0.8); Platelet Count 200 10^3/uL (150-450)
[2024-05-17] MEDS: Pantoprazole VIAL 40 MG VIAL IV SCH (08:37)
[2024-05-17] MEDS: Magnesium Sulfate 2 gm BAG 2 GM/50 ML BAG ONE (09:36)
[2024-05-17] MEDS: Lactated Ringers 1000 ml BAG 1,000 ML IV ONE (10:54)
[2024-05-17] MEDS: Magnesium Sulfate 2 gm BAG 2 GM/50 ML BAG IVPB ONE (10:55)
[2024-05-18 00:30] LABS: Hemoglobin 7.3 g/dL (13.2-16.3)
[2024-05-18 06:30] LABS: ABS Basophils 0.1 10^3/uL (0.0-0.1); ABS Eosinophils 0.1 10^3/uL (0.0-0.5); ABS Lymphocytes 3.7 10^3/uL (1.0-4.8); ABS Monocytes 0.9 10^3/uL (0.0-1.1); ABS Neutrophils 6.1 10^3/uL (1.5-7.6); ABS Nucleated RBC 0.11 10^3/ul; Eosinophil % 0.5 %; Hematocrit 23.1 % (38-53); Hemoglobin 7.7 g/dL (13.2-16.3); Lymphocyte % 34.1 %; Mean Corpuscular Hemoglobin 25.9 pg (27-33); Mean Corpuscular Hgb Conc 33.3 g/dL (31-36); Mean Corpuscular Volume 77.9 fL (80-97); Mean Platelet Volume 10.7 fL (7.5-11.2); Platelet Count 211 10^3/uL (150-450); Red Blood Count 2.97 10^6/uL (4.06-5.63); Red Cell Distribution Width 20.8 % (12-17); White Blood Count 10.8 10^3/uL (3.6-10.2)
[2024-05-18 06:41] LABS: Calcium 7.6 mg/dL (8.6-10.3); Creatinine, Serum 2.44 mg/dL (0.67-1.17); Potassium 4.9 mmol/L (3.5-5.0); eGFR CKD-EPI 28.5 (>60)
[2024-05-18] MEDS: Lactated Ringers 1000 ml BAG 1,000 ML IV SCH (10:46)
[2024-05-18] MEDS ORDERED: Iron Sucrose 200 MG in NS 0.9% 100 ml BAG 100 ML IVPB SCH (12:00)
[2024-05-18] MEDS: Ferric Gluconate IV 125 MG in NS 0.9% 100 ML IVPB SCH (14:47)
[2024-05-18 16:11] LABS: Hepatitis C Antibody Reactive (Negative)
[2024-05-18] MEDS: Senna TAB 8.6 mg TAB PO PRN (16:47)
[2024-05-18] MEDS ORDERED: Magnesium Hydroxide LIQ 30 ML UDC PO PRN (20:09)
[2024-05-18] MEDS: Senna TAB 8.6 mg TAB PO SCH (20:42)
[2024-05-19 06:40] LABS: ABS Basophils 0.1 10^3/uL (0.0-0.1); ABS Eosinophils 0.1 10^3/uL (0.0-0.5); ABS Lymphocytes 3.6 10^3/uL (1.0-4.8); ABS Monocytes 0.9 10^3/uL (0.0-1.1); ABS Neutrophils 4.8 10^3/uL (1.5-7.6); ABS Nucleated RBC 0.07 10^3/ul; Eosinophil % 0.8 %; Hematocrit 22.5 % (38-53); Hemoglobin 7.6 g/dL (13.2-16.3); Lymphocyte % 38.6 %; Mean Corpuscular Hemoglobin 26.4 pg (27-33); Mean Corpuscular Hgb Conc 33.8 g/dL (31-36); Mean Corpuscular Volume 78.1 fL (80-97); Mean Platelet Volume 10.9 fL (7.5-11.2); Nucleated Red Blood Cells % 0.7 %/100WBC (0.0-0.8); Platelet Count 191 10^3/uL (150-450); Red Blood Count 2.88 10^6/uL (4.06-5.63); Red Cell Distribution Width 20.6 % (12-17); White Blood Count 9.4 10^3/uL (3.6-10.2)
[2024-05-19 06:57] LABS: Calcium 7.5 mg/dL (8.6-10.3); Creatinine, Serum 2.51 mg/dL (0.67-1.17); Magnesium 2.1 mg/dL (1.9-2.7); Potassium 4.8 mmol/L (3.5-5.0); eGFR CKD-EPI 27.5 (>60)
[2024-05-19] MEDS: Polyethylene Glycol 3350 17 GM PACKET PO SCH (14:13)
[2024-05-19] MEDS: Magnesium Hydroxide LIQ 30 ML UDC PO SCH (14:13)
[2024-05-20 07:53] LABS: Hematocrit 24.9 % (38-53); Hemoglobin 8.2 g/dL (13.2-16.3); Mean Corpuscular Hemoglobin 26.1 pg (27-33); Mean Corpuscular Volume 79.2 fL (80-97); Mean Platelet Volume 10.7 fL (7.5-11.2); Platelet Count 214 10^3/uL (150-450); Red Blood Count 3.15 10^6/uL (4.06-5.63); Red Cell Distribution Width 20.7 % (12-17); White Blood Count 9.4 10^3/uL (3.6-10.2)
[2024-05-20 08:12] LABS: Calcium 7.7 mg/dL (8.6-10.3); Creatinine, Serum 2.35 mg/dL (0.67-1.17); Potassium 4.7 mmol/L (3.5-5.0); eGFR CKD-EPI 29.8 (>60)
[2024-05-20 08:27] LABS: ABS Basophils 0.1 10^3/uL (0.0-0.1); ABS Eosinophils 0.1 10^3/uL (0.0-0.5); ABS Lymphocytes 3.4 10^3/uL (1.0-4.8); ABS Monocytes 0.7 10^3/uL (0.0-1.1); ABS Neutrophils 5.1 10^3/uL (1.5-7.6); ABS Nucleated RBC 0.13 10^3/ul; Eosinophil % 0.6 %; Lymphocyte % 36.7 %; Microcytosis 1+; Nucleated Red Blood Cells % 1.4 %/100WBC (0.0-0.8); Spherocytes 1+; Target Cells 2+; Tear Drop Cells 2+
[2024-05-20] MEDS: Lactated Ringers 1000 ml BAG 1,000 ML IV ONE (09:20)
[2024-05-20 13:48] VITALS: BP 112/62
[2024-05-20 14:43] LABS: Ferritin 68.9 ng/mL (24-336)
== END 2024-05-20 17:10 | disposition home or self-care (01) | DRG 377 ==
LOC: ED 13:52 → EDHOLD 13:52 → MED 20:54
PROVIDERS: ADMIT Student in an Organized Health Care Education/Training Program; ATTEND Student in an Organized Health Care Education/Training Program

== ENCOUNTER 2024-06-03 16:18 | Observation (INO) ==
[2024-06-03] MEDS ORDERED: Ondansetron 4 mg VIAL 2 MG/ML 2 ml VIAL ONE (16:38)
[2024-06-03] MEDS: Ondansetron 4 mg VIAL 2 MG/ML 2 ml VIAL IV ONE (16:44)
[2024-06-03] MEDS ORDERED: Ondansetron 4 mg VIAL 2 MG/ML 2 ml VIAL IV ONE (16:54)
[2024-06-03] MEDS ORDERED: Lorazepam PYXIS KEY PRN (17:07)
[2024-06-03] MEDS: LORazepam 2 mg VIAL 1 ml IV PUSH ONE (17:16)
[2024-06-03] MEDS: Morphine 4 MG/ML VIAL (1 ml) IV ONE (17:17)
[2024-06-03 17:19] LABS: Albumin 2.6 g/dL (3.2-5.2); Albumin/Globulin Ratio 0.6 (1-3); Calcium 8.1 mg/dL (8.6-10.3); Creatinine, Serum 2.03 mg/dL (0.67-1.17); Globulin 4.3 g/dL (2-4); Potassium 3.6 mmol/L (3.5-5.0); Total Bilirubin 2.7 mg/dL (0.2-1.0); Total Protein 6.9 g/dL (6.4-8.9); eGFR CKD-EPI 35.5 (>60)
[2024-06-03 17:27] LABS: Hematocrit 26.4 % (38-53); Hemoglobin 8.5 g/dL (13.2-16.3); Mean Corpuscular Hemoglobin 26.3 pg (27-33); Mean Corpuscular Hgb Conc 32.3 g/dL (31-36); Mean Corpuscular Volume 81.5 fL (80-97); Red Blood Count 3.24 10^6/uL (4.06-5.63); Red Cell Distribution Width 26.2 % (12-17); White Blood Count 10.8 10^3/uL (3.6-10.2)
[2024-06-03 18:44] LABS: ABS Basophils 0.1 10^3/uL (0.0-0.1); ABS Lymphocytes 1.2 10^3/uL (1.0-4.8); ABS Monocytes 0.6 10^3/uL (0.0-1.1); ABS Neutrophils 8.9 10^3/uL (1.5-7.6); ABS Nucleated RBC 0.01 10^3/ul; Giant Platelets Present; Lymphocyte % 11.2 %; Mean Platelet Volume 10.6 fL (7.5-11.2); Nucleated Red Blood Cells % 0.1 %/100WBC (0.0-0.8); Platelet Count 195 10^3/uL (150-450); Polychromasia 1+; Smudge Cells Present; Target Cells 2+
[2024-06-03] MEDS: Scopolamine 1 mg/72hr PATCH TRANSDERM SCH (19:12)
[2024-06-03] MEDS: Atropine 1% (ORAL/SL) 15 ML BTL SL PRN (19:14)
[2024-06-03 19:18] VITALS: BP 119/70
[2024-06-03] MEDS: LORazepam 2 mg VIAL 1 ml IV PUSH PRN (19:42)
== END 2024-06-04 00:30 | disposition expired ==
LOC: EDHOLD 16:18 → ED 16:18 → EDHOLD 06-04 03:25
PROVIDERS: ADMIT Hospitalist; ATTEND Internal Medicine